=== PATIENT | male | born 1985 | race Two or more races ===

== ENCOUNTER 2018-08-04 19:53 | Emergency (ER) | payer SELFPAY ==
[~2018-08-04] VITALS: Ht 154.9 cm; Wt 62.1 kg
[2018-08-04 20:02] VITALS: BP 122/69
[2018-08-04] MEDS ORDERED: MUPI22OI2 TP (20:21)
[2018-08-04] MEDS ORDERED: SULF1TAB24 PO (20:21)
--- NOTE | 2018-08-04 20:21 | PHYS DOC ---
Past Medical History Past Medical History: No Pertinent History Past Surgical History: No Surgical History Alcohol Use: Occasionally Drug Use: None Adult General Chief Complaint Chief Complaint: SKIN RASH/ABSCESS [facility] HPI Patient is a 32 year old male presents for eval of bleeding sore to back of scalp x1 week. He wears a hard hat at work which causes more rubbing and pain. unsure what started the wound Review of Systems Review of Systems Constitutional: Denies fever or chills [] Eyes: Denies change in visual acuity, redness, or eye pain [] HENT: Denies nasal congestion or sore throat [] Respiratory: Denies cough or shortness of breath [] Cardiovascular: No additional information not addressed in HPI [] GI: Denies abdominal pain, nausea, vomiting, bloody stools or diarrhea [] : Denies dysuria or hematuria [] Musculoskeletal: Denies back pain or joint pain [] Integument: Denies rash + skin lesions [] Neurologic: Denies headache, focal weakness or sensory changes [] Endocrine: Denies polyuria or polydipsia [] All other systems were reviewed and found to be within normal limits, except as documented in this note. Allergies Allergies Allergies Coded Allergies Type Severity Reaction Last Updated Verified No Known Drug Allergies 08/04/18 No Physical Exam Physical Exam Constitutional: Well developed, well nourished, no acute distress, non-toxic appearance. [] HENT: Normocephalic, atraumatic, bilateral external ears normal, oropharynx mo ist, no oral exudates, nose normal. [] Eyes: PERRLA, EOMI, conjunctiva normal, no discharge. [] Neck: Normal range of motion, no tenderness, supple, no stridor. [] Skin: small bleeding sore to posterior scalp, no fluctuance or induration, appearance of skin tag. [] Back: No tenderness, no CVA tenderness. [] Neurologic: Alert and oriented X 3, normal motor function, normal sensory function, no focal deficits noted. [] Psychologic: Affect normal, judgement normal, mood normal. [] Current Patient Data Vital Signs Vital Signs Date Time Temp Pulse Resp B/P (MAP) Pulse Ox O2 Delivery O2 Flow Rate FiO2 08/04/18 20:02 97.8 67 16 122/69 (86) 96 Room Air 97.8 EKG EKG [] Radiology/Procedures Radiology/Procedures [] Course & Med Decision Making Course & Med Decision Making Pertinent Labs and Imaging studies reviewed. (See chart for details) [rx bactrim and bactroban, recommend bandana use under hard hat at work to protect wound while it heals, f/u c pcp] Brittnee Disclaimer Brittnee Disclaimer This electronic medical record was generated, in whole or in part, using a voice recognition dictation system. Departure Departure Impression: Primary Impression: Abscess Disposition: 01 HOME, SELF-CARE Condition: STABLE Patient Instructions: Abscess, Care After Scripts Mupirocin (MUPIROCIN OINTMENT) 22 Gm Oint...g. 1 PAULINE TP TID for WOUND CARE, #1 TUBE Prov: ANITA HUTCHINSON APRN 08/04/18 Sulfamethoxazole/Trimethoprim (BACTRIM DS TABLET) 1 Each Tablet 1 TAB PO BID, #20 TAB Prov: ANITA HUTCHINSON APRN 08/04/18 ANITA HUTCHINSON APRN Aug 04, 2018 20:21
== END 2018-08-04 20:29 | disposition home or self-care (01) ==
LOC: ER 19:53
DX: L02.811 Cutaneous abscess of head [any part, except face] (principal)
CPT/HCPCS: 99283